=== PATIENT | female | born 1995 | race African-American/Black ===

== ENCOUNTER 2019-07-14 06:01 | Inpatient (IN) | payer OTHER, SELFPAY ==
--- NOTE | 2019-06-21 13:30 | PC.NURSE ---
PATIENT PLANNING TO --CONSENT SIGNED
[2019-07-14] VITALS (66 sets, daily range): BP systolic 90–126; BP diastolic 47–83; PULSE 73–125; RESP 16; TEMP 36.8–37.2; O2SAT 96–100; BMI 24.3
--- NOTE | 2019-07-14 06:15 | LDADM ---
This patient, Ellen Hunter, was admitted to Labor/Delivery/Recovery 103 on 07/14/19 at 06:01. Plans for labor, pain management and were discussed with patient. Patient/family oriented to hospital policies and general routines including ID bracelet, bed and alarms, visiting hours, pain management, procedures, bathroom and other care routines, personal items, smoking policy, room service/diet and guest tray routines, security routines, and visiting hours. Patient/Family are encouraged to report perceived risks to care and to ask questions if they do not understand what they are told or what they should do. See OBIX for further documentation.
[2019-07-14 06:51] LABS: Basophils Percent Auto 0.2 % (0.2-1.2); Eosinophils Percent Auto 0.3 % (0-4.4); Hematocrit 30.8 % (37.0-47.0); Hemoglobin 9.8 g/dL (12.0-15.0); Immature Granulocyte Percent A 0.8 % (0-0.5); Lymphocytes Absolute Auto 3.15 K/mm3 (0.9-3.2); Lymphocytes Percent Auto 23.8 % (18.3-44.2); Mean Corpuscular HGB Conc 31.8 g/dl (32-36); Mean Corpuscular Hemoglobin 24.1 pg (26-34); Mean Corpuscular Volume 75.9 fl (80-100); Mean Platelet Volume 9.9 fl (7.4-10.4); Monocytes Absolute Auto 0.7 K/mm3 (0.1-0.6); Neutrophils Absolute Auto 9.3 K/mm3 (1.3-6.7); Neutrophils Percent Auto 69.9 % (45.5-73.1); Platelet Count Result 285 k/mm3 (150-375); Red Blood Count 4.06 M/mm3 (4.2-5.4); Red Cell Distribution Width 18.3 % (11.5-14.5); White Blood Count 13.3 K/mm3 (4.5-10.0)
[2019-07-14] MEDS: AZITHROMYCIN 250 MG TABLET 1000 MG PO (07:29)
--- NOTE | 2019-07-14 07:43 | P.HP_ITS ---
Obstetrics - Admit Note Admission Note: record reviewed. No pertinent additions to the history and/or any subsequent changes in the physical findings that are not consistent with the expected course of the were found. hx cesraean section x 1 with 2 . Reviewed risk of including uterine rupture and infant mortalit y. Pt agrees to proceed with AROM, small amount of clear fluid and IUPC placed. Tx for chlamydia with 1 gm zithromax Additions to the history and/or subsequent changes in the physical findings follow. None.
[2019-07-14] MEDS: LACTATED RINGERS 1,000 ML 125 ML IV CONT ×2 (08:25→08:27)
--- NOTE | 2019-07-14 08:34 | WPDANESEPP ---
Anes - Eval Pre Procedure Procedure: Labor Pain Management Operation Date: 07/15/19 12:00 Proposed Procedures p Post- Tubal Ligation with Cautery - Troy Valverde MD Date/Time: 07/14/19 08:34 Surgeon: Abram Preop Diagnosis: Pain during labor, Unwanted Fertility Pre Op Diagnosis: Induction of Labor Patient Data Age: 24 Gender: F Height: 5 ft 7 in Weight: 70.5 kg Last Vital Signs Temp 99 F 07/14/19 07:30 Pulse 86 07/14/19 08:31 BP 117/76 07/14/19 08:31 Pulse Ox 100 07/14/19 08:31 Allergies Allergy/AdvReac Type Severity Reaction Status Date / Time No Known Allergies Allergy Unverified 04/29/17 15:53 Home Medications Medication Instructions Recorded Confirmed Type PNV cmb#95-ferrous fumarate-FA 1 tablet PO DAILY 06/21/19 07/14/19 History [] ferrous sulfate 324 mg PO DAILY 06/21/19 06/21/19 History Laboratory Tests 07/14/19 07/14/19 07/14/19 06:31 06:31 06:31 WBC 13.3 K/mm3 H K/mm3 (4.5-10.0) RBC 4.06 M/mm3 L M/mm3 (4.2-5.4) Hgb 9.8 g/dL L g/dL (12.0-15.0) Hct 30.8 % L % (37.0-47.0) MCV 75.9 fl L fl (80-100) MCH 24.1 pg L pg (26-34) MCHC 31.8 g/dl L g/dl (32-36) RDW 18.3 % H % (11.5-14.5) Plt Count 285 k/mm3 k/mm3 (150-375) MPV 9.9 fl fl (7.4-10.4) Immature Gran % (Auto) 0.8 % H % (0-0.5) Neut % (Auto) 69.9 % % (45.5-73.1) Lymph % (Auto) 23.8 % % (18.3-44.2) [place] % (Auto) 5.0 % % (2.6-8.5) Eos % (Auto) 0.3 % % (0-4.4) Baso % (Auto) 0.2 % % (0.2-1.2) Lymph # (Auto) 3.15 K/mm3 K/mm3 (0.9-3.2) [place] # (Auto) 0.7 K/mm3 H K/mm3 (0.1-0.6) Eos # (Auto) 0.0 K/mm3 K/mm3 (0-0.3) Baso # (Auto) 0.0 K/mm3 K/mm3 (0.0-0.1) Abs Immat Gran (auto) 0.10 K/mm3 H K/mm3 (0.00-0.031) Absolute Neuts (auto) 9.3 K/mm3 H K/mm3 (1.3-6.7) Absolute Nucleated RBC 0.0 K/mm3 K/mm3 (0.0-0.012) Nucleated RBC % 0.0 % % (0.0-0.2) RPR Pending Blood Type O Positive Antibody Screen Negative Patient hx anesthesia problems: none Family hx anesthesia problems: none PMFSH Past Medical History Medical History Gestational diabetes Pain during labor Family History Family History Mother Diabetes mellitus Hypertension Father Patient's father is in good health Sibling Patient's brother is in good health Patient's sister is in good health Grandparent Diabetes mellitus Hypertension Social History Social History Smoking status: Never smoker Alcohol intake: never Substance use: never Spiritual care concerns: No Exam Day of Procedure 07/14/19 08:34
[2019-07-14] MEDS: OXYTOCIN 30 UNITS/NS 500 ML 30 UNITS/500 ML BAG 999 UNITS IV CONT (11:50)
--- NOTE | 2019-07-14 11:54 | P.PCNOB_ITS ---
OB - Delivery Note Procedure Delivery date: 07/14/19 Procedure: Procedures Operation Date: 07/15/19 12:00 <No data on this case meets the specified criteria> events: Labor Induction Intrapartal events: Sexually Transmitted Infection (chlamydia tx with 1 gm zithromax) Induction method: AROM Delivery monitor: external FHT and internal FHT Route of delivery: Laceration description: None Specimen: Yes Estimated blood loss (mL): 72 Anesthesia type: Epidural Disposition: other () Complications: meconium fluid at delivery, baby vigorous, mother and baby in stable condition [place] Baby Date of : 07/14/19 Time of : 11:46 Weeks of gestation at delivery: 39 Infant gender: Male Weight (pounds): 7 Weight (ounces): 9 presentation: vertex position: Left Occiput Anterior Placenta delivery description: Spontaneous cord vessel description: 3 Vessels score one minute: 9 score five minutes: 9
[2019-07-14] MEDS: WITCH HAZEL 40 PADS 1 PAD TOPICAL (12:28)
[2019-07-14] MEDS: OXYTOCIN 30 UNITS/NS 500 ML 30 UNITS/500 ML BAG 125 UNITS IV CONT (12:29)
[2019-07-14] MEDS: IBUPROFEN 600 MG TABLET PO ×2 (13:39→21:24)
--- NOTE | 2019-07-14 14:45 | PC.NURSE ---
Mother called out for education. Mother states this is 6th child and first to breastfeed. Mother reports eagerly fed for feedings feeding. Reviewed feeding cues, frequencies, duration of feedings, feeding elimination flow sheet, and signs of adequate intake. Advised to wake to feed by three hours from start of latch feeding and to rotate breasts each feeding. Discussed stimulateing infant during feeding to keep awake and nursing. Reviewed should not hurt and to call out for RN assistance if she is unable to latch infant for feeding or she has discomfort with nursing. Instructed feeding should be initiated three hours from start of last feeding or if feeding cues are noted before. Mother voiced understanding of information shared.
--- NOTE | 2019-07-14 15:30 | PC.NURSE ---
Addendum entered by Rohini Madsen RN 07/15/19 13:03: note on wrong chart Original Note: Consulted with patient, mother reports this to be 6th child first to breastfeed. Reviewed infant feeding cues, frequencies, duration of feedings, feeding elimination flow sheet, and signs of adequate intake. Demonstrated stimulation techniques to wake for feeding. Assisted with to breast. Reviewed positioning/alignment in cross cradle, holding breast in U hold and guided asymmetrical latch on. Discussed rational for each. was able to latch correctly. Infant nursed eagerly, with steady draws and frequent swallowing noted. Reviewed signs of a correct latch, effective nursing and suck swallow ratio. Long pausing noted, advised to stimulate to keep infant awake and nursing effectively for increased intake and mother's comfort. Infant was able to maintain latch without discomfort to mother. Nipple care reviewed. Instructed mother to call out for RN assistance if she is unable to latch for feeding or she has discomfort with nursing. Instructed feeding should be initiated three hours from start of last feeding or if feeding cues are noted before. Mother voiced understanding of information shared.
[2019-07-15 04:01] VITALS: BP 114/71; PULSE 70; RESP 16; TEMP 37; O2SAT 100
[2019-07-15] MEDS: IBUPROFEN 600 MG TABLET PO (04:29)
[2019-07-15 05:21] LABS: Hematocrit 26.4 % (37.0-47.0); Hemoglobin 8.2 g/dL (12.0-15.0)
[2019-07-15 07:45] VITALS: BP 114/73; PULSE 71; RESP 16; TEMP 36.8; O2SAT 98
--- NOTE | 2019-07-15 08:13 | WPDOBCIRC ---
OB Preemption - Circumcision Consent: Potential risks, benefits, and alternatives have been discussed and questions answered. Family agrees to proceed with circumcision. Preoperative Diagnosis: Normal Foreskin. Postoperative Diagnosis: Normal Foreskin. Date of Circumcision: 07/15/19 Time of Circumcision: 08:11 Type of Circumcision: GOMCO with 1.3 Anesthesia: Dorsal Nerve Block Foreskin: The foreskin was examined and found to be grossly normal. Estimated Blood Loss: Minimal
--- NOTE | 2019-07-15 08:17 | PM.OBPNVD ---
OB - PN: Subj Subjective Date/time seen: 07/15/19 08:17 Patient comments: no complaints, pain well controlled, incisional pain, tolerating diet and flatus present OB - PN: Obj Data Labs CBC & Chem 7: 07/15/19 04:25 Labs: Laboratory Results - last 24 hr 07/15/19 04:25 Hgb 8.2 L Hct 26.4 L OB - PN A/P Plan day: 1 Plan: routine care Comments: No problems, routine care to d/c, cancelled tubal Time Spent With Patient Time: Total time spent is greater than 50% in coordination of care (as documented) at patient's floor/unit and/or counseling patient: Exam Const: General: comfortable, no acute distress and alert Resp: Effort & Inspection: normal respiratory effort Auscultation: no crackles, no rales and no rhonchi Cardio: Rate: regular rate Heart sounds: no click, no murmurs and no rubs GI: Inspection: non-distended GI Palp: No Tenderness to palpation present (GI) Auscultation: normal bowel sounds Other: Incision - CDI Extrem: General: normal to inspection, no pedal edema and no calf tenderness
--- NOTE | 2019-07-15 08:19 | PM.OBDSVD ---
OB - DS: Summary OB Procedures : None OB Procedures Intrapartum: Spontaneous Vag Delivery OB Procedures: : None Peripartum Data Delivery Method: Natural Vaginal Laceration description: None Procedures: Procedures Operation Date: 07/15/19 12:00 <No data on this case meets the specified criteria> complications: none Status at Discharge Functional status at discharge: independent ambulation Time Spent with Patient Time attestation: Total time spent providing and/or coordinating discharge services: DS: Data Data Completed and Pending Pending studies at discharge: Pending at discharge 07/14/19 11:50 Surgical [PTH] Routine Labs on day of discharge: Labs from last 24 hours 07/15/19 04:25 Hgb 8.2 L Hct 26.4 L Discharge Plan Discharge Discharging Clinician: Troy Valverde Patient Disposition: Home, Self-Care Activity: pelvic rest Diet: regular Discharge Instructions: Education: Mom and Baby Guide Given to: Mother Follow-Up: Call your delivering provider's office for an appointment to be seen in: Call MD for f/u appt. Mom and baby should come to the [facility] for the follow-up appointment. Appointment Date/Time: July 16, 2019 at 9:00 am. What to expect at your follow-up visit: Physical Assessment Call [phone] if you are unable to keep your appointment time. BREAST CARE: 1. Wear a snug supportive bra. 2. For engorgement discomfort: Breast Feeding: A. Apply warm moist washcloths B. Express milk as needed to relieve engorgement C. Wear loose clothing 3. For sore nipples: A. Identify correct latch-on B. Apply warm moist washcloths before and after nursing C. Air dry nipples after nursing D. May apply Lansinoh cream to nipples PERINEAL CARE: 1. Until bleeding stops, use your sandra bottle after urinating 2. Change your pad frequently throughout the day 3. You may take sitz baths several times a day (fill your bathtub with warm water and soak for 20 minutes.) Do NOT bathe in the water 4. No tub baths until seen by your physician - You may shower ACTIVITY: 1. Rest as much as possible. 2. Do not exercise or lift anything heavier than your baby (such as laundry or other children.) 3. Avoid stairs or driving as much as possible. 4. Do not put anything into the vagina. No douching, tampons, or sexual activity until seen by physician. NOTIFY PHYSICIAN IF YOU HAVE ANY QUESTIONS OR IF ANY OF THE FOLLOWING SYMPTOMS OCCUR: 1. If your perineum becomes red, swollen, or more painful than what you have experienced in the hospital. 2. If your vaginal bleeding becomes foul smelling. 3. If your vaginal bleeding becomes more heavy than a period or if your bleeding changes from pink to bright red. However, you may pass an occasional walnut-sized clot once or twice for the first week . 4. If you experience a sharp, shooting pain in you calves. 5. If you discover a hard, reddened area on your breast or if you experience flu-like symptoms. DIET: 1. Eat regular, well-balanced meals. 2. Drink plenty of fluids daily. If , drink to thirst. Stand Alone Forms: General Discharge Information Follow-up/Referrals: Troy Valverde MD [Physician] - Discharge Medications: Continued ferrous sulfate 324 mg (65 mg iron) Tablet,Delayed Release (Dr/Ec) 324 mg PO DAILY RF: 0 PNV cmb#95-ferrous fumarate-FA [] 28 mg iron- 800 mcg Tablet 1 tablet PO DAILY RF: 0 Date of admission: 07/14/19 06:01 Primary Care Provider: UNKNOWN,DOCTOR Admitting Provider: Troy Valverde Discharge Date/Time: 07/15/19 13:55 Attending physician on admission: Troy Valverde
[2019-07-15] MEDS: DOCUSATE SODIUM 100 MG CAPSULE PO (08:58)
[2019-07-15] MEDS: MULTIVIT/MIN/PREN/FOL AC/IRON TABLET 1 TAB PO (08:58)
[2019-07-15] MEDS: POLYSACCHARIDE IRON COMPLEX 150 MG CAPSULE PO (08:58)
--- NOTE | 2019-07-15 09:09 | WPDANLDPN2 ---
Anes-Prog Note L&D Date/Time: 07/15/19 09:09 Comfortable throughout: labor and delivery Neuraxial method: epidural Epidural/Spinal procedure site: clean & non-tender Neuro status: Neuro function grossly intact. Cardiovascular status: normal Respiratory status: normal Airway patency: baseline Mental status: baseline Post-Op hydration status: normal Vital Signs: Last Vital Signs Temp 36.8 C 07/15/19 07:45 Pulse 71 07/15/19 07:45 Resp 16 07/15/19 07:45 BP 114/73 07/15/19 07:45 Pulse Ox 98 07/15/19 07:45 Pain score (VAS): 0/10. Patient resting in bed at time of assessment, appears comfortable. Post-procedural complaints: none Patient feedback: Patient satisfied with anesthetic care.
--- NOTE | 2019-07-15 09:25 | PC.NURSE ---
Epidural catheter removed from back, blue tip intact. Bandaid placed over insertion site. Pt tolerated well.
[2019-07-15 09:29] LABS: Rapid Plasma Reagin Non-Reactive (NonReactive)
--- NOTE | 2019-07-15 12:15 | PC.NURSE ---
Mother is able to independently latch infant with appropriate positioning/alignment. She denies any nipple discomfort, is feeding as required and waking to feed if needed. has had 8 effective feedings in the past 24 hours, and is currently meeting outcomes for weight, output, jaundice and feeding frequencies. Mother states she feels confident to continue effective at home, stating she may supplement during the night. Reviewed transition to breast milk, signs of adequate intake, and engorgement/relief. Instructed to call ICP if intake/output less than required. Reviewed regular medications mother is taking. Information provided per Daniela. Reviewed community resources on the [facility] website and in the Mom/Baby guide. Information on outpatient services provided. Mother has no further questions at this time.
[2019-07-16 09:32] VITALS: BP 111/63; PULSE 78; RESP 18; TEMP 36.7
== END 2019-07-15 13:55 | disposition home or self-care (01) | DRG 560 ==
LOC: ANHLDR 06:09 → ANHOB2 14:30
PROVIDERS: Advanced Practice Midwife; Admitting Provider Obstetrics & Gynecology; Visit Provider Obstetrics & Gynecology
DX: O34.211 Maternal care for low transverse scar from previous cesarean delivery (principal); Z37.0 Single live birth; Z3A.39 39 weeks gestation of pregnancy; O77.0 Labor and delivery complicated by meconium in amniotic fluid; O98.32 Other infections with a predominantly sexual mode of transmission complicating childbirth; A56.8 Sexually transmitted chlamydial infection of other sites
CPT/HCPCS: 36415; 85014; 85018; 85025; 86592; 86850; 86900; 86901; 88307; A9270; J2590; J2795; J7120

== ENCOUNTER 2021-11-03 11:59 | Emergency (ER) | payer OTHER, SELFPAY ==
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
[2021-11-03 12:14] VITALS: BP 125/67; PULSE 74; RESP 18; TEMP 36.7; O2SAT 98
[2021-11-03] MEDS: IBUPROFEN 600 MG TABLET PO (13:18)
[2021-11-03] MEDS: ACETAMINOPHEN 325 MG TABLET 650 MG PO (13:18)
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
== END 2021-11-03 14:03 | disposition home or self-care (01) ==
PROVIDERS: Emergency Provider Emergency Medicine
DX: S13.9XXA Sprain of joints and ligaments of unspecified parts of neck, initial encounter (principal); V43.52XA Car driver injured in collision with other type car in traffic accident, initial encounter
CPT/HCPCS: 72125; 99284; A9270